=== PATIENT | female | born 1990 | race African-American/Black ===

== ENCOUNTER 2020-05-10 17:58 | Emergency (ER) | payer OTHER ==
[2020-05-10 18:24] VITALS: BMI 29.1
[2020-05-10] MEDS ORDERED: LACTATED RINGERS SOLUTION 1000 ML INFUS.BAG IV ONE (19:06)
[2020-05-10] MEDS ORDERED: ONDANSETRON 4 MG/2 ML VIAL IVPB ONE (19:06)
[2020-05-10] MEDS ORDERED: PYRIDOXINE HCL (B-6) 100 MG TABLET PO ONE (19:30)
[2020-05-10] MEDS ORDERED: ONDANSETRON 4 MG/2 ML VIAL ONE (19:42)
[2020-05-10] MEDS ORDERED: PYRIDOXINE HCL (B-6) 50 MG TABLET (FP) PO ONE (20:00)
[2020-05-10 20:38] LABS: BASO % 0.3 % (0-2.0); EOS % 0.2 % (0-4.5); HEMATOCRIT 37.3 % (32.4-45.2); HEMOGLOBIN 12.6 GM/dL (10.7-15.3); LYMPH % 18.9 % (8-40); MCH 29.3 pg (25.7-33.7); MCHC 33.9 g/dl (32.0-36.0); MEAN CELL VOLUME 86.5 fl (80-96); MEAN PLT VOLUME 9.5 fl (7.5-11.1); NEUT % 73.6 % (42.8-82.8); PLATELET COUNT 286 K/MM3 (134-434); RBC 4.31 M/mm3 (3.60-5.2); RDW 13.2 % (11.6-15.6)
[2020-05-10 20:57] LABS: POTASSIUM 3.5 mmol/L (3.5-5.1)
[2020-05-10 21:00] LABS: CALCIUM 9.8 mg/dL (8.5-10.1)
[2020-05-10 21:01] LABS: ALBUMIN 3.9 g/dl (3.4-5.0); BLOOD UREA NITROGEN 6.6 mg/dL (7-18)
[2020-05-10 21:04] LABS: CREATININE 0.5 mg/dL (0.55-1.3)
[2020-05-10 21:05] LABS: BILIRUBIN,TOTAL 0.4 mg/dL (0.2-1); TOT PROT 8.2 g/dl (6.4-8.2)
[2020-05-10 22:33] LABS: EPI CELLS >36 /uL (0-25.1); HYALINE CASTS 66 /uL (0-3.1); URINE APPEARANCE TURBID; URINE BACTERIA 3641 /uL (0-1359); URINE BILIRUBIN 1+ (NEGATIVE); URINE COLOR DK YELLOW; URINE GLUCOSE (UA) NEGATIVE (NEGATIVE); URINE KETONE 4+ (NEGATIVE); URINE LEUK ESTERASE 2+ (NEGATIVE); URINE NITRITE NEGATIVE (NEGATIVE); URINE PROTEIN 1+ (NEGATIVE); URINE RBC 41 /uL (0-23.9); URINE WBC 916 /uL (0-25.8)
[2020-05-10] MEDS ORDERED: CEPHALEXIN MONOHYDRATE 500 MG CAPSULE (UD) PO ONE (22:50)
[2020-05-10 23:02] VITALS: BP 117/83; PULSE 81; TEMP 98.4
[2020-05-10] MEDS ORDERED: CEPHALEXIN MONOHYDRATE 500 MG CAPSULE (UD) ONE (23:07)
== END 2020-05-10 23:16 | disposition home or self-care (01) ==
LOC: JER 17:58
PROC: 3E033GC Introduction of Other Therapeutic Substance into Peripheral Vein, Percutaneous Approach (ICD-10-PCS; principal; 2020-05-10)
DX: O21.1 Hyperemesis gravidarum with metabolic disturbance (principal); R82.71 Bacteriuria; Z3A.12 12 weeks gestation of pregnancy
CPT/HCPCS: 36415; 80053; 81003; 83690; 84702; 85025; 87086; 99284-25

== ENCOUNTER 2020-12-13 22:18 | Emergency (ER) | payer OTHER ==
[2020-12-13 22:24] VITALS: BP 119/84; PULSE 81; TEMP 98; BMI 30.7
[2020-12-13] MEDS ORDERED: ACETAMINOPHEN 325 MG TABLET (FP) PO ONE (23:48)
[2020-12-13] MEDS ORDERED: ACETAMINOPHEN 325 MG TABLET (FP) ONE (23:58)
== END 2020-12-14 01:10 | disposition home or self-care (01) ==
LOC: JER 22:18
DX: R51.9 Headache, unspecified (principal)
CPT/HCPCS: 99283-25

== ENCOUNTER 2021-01-16 16:51 | Inpatient (IN) | payer OTHER ==
[2021-01-16 17:19] VITALS: BMI 27.8
[2021-01-16] MEDS ORDERED: SODIUM CHLORIDE 1,000 ML IV STA ×2 (17:46→20:23)
[2021-01-16] MEDS ORDERED: ACETAMINOPHEN 1000 MG/100 ML VIAL (NON FORMULARY) IVPB ONE (17:46)
[2021-01-16] MEDS ORDERED: ONDANSETRON 4 MG/2 ML VIAL IVPUSH ONE (17:46)
[2021-01-16] MEDS ORDERED: morphine CARPU-JECT 4 MG/1 ML DISP.SYRIN IVPUSH ONE (18:11)
[2021-01-16] MEDS ORDERED: ACETAMINOPHEN INJECTION 100 ML IVPB ONE (18:13)
[2021-01-16] MEDS ORDERED: ONDANSETRON 4 MG/2 ML VIAL ONE (18:14)
[2021-01-16 19:20] LABS: BASO % 0.2 % (0-2.0); EOS % 0.4 % (0-4.5); HEMATOCRIT 37.2 % (32.4-45.2); HEMOGLOBIN 12.2 GM/dL (10.7-15.3); LYMPH % 11.6 % (8-40); MCH 27.6 pg (25.7-33.7); MCHC 32.7 g/dl (32.0-36.0); MEAN CELL VOLUME 84.3 fl (80-96); MEAN PLT VOLUME 9.9 fl (7.5-11.1); MONO % 5.6 % (3.8-10.2); NEUT % 82.2 % (42.8-82.8); PLATELET COUNT 251 10^3/uL (134-434); RBC 4.42 M/mm3 (3.60-5.2); RDW 13.9 % (11.6-15.6)
[2021-01-16 19:33] LABS: CALCIUM 8.5 mg/dL (8.5-10.1)
[2021-01-16 19:34] LABS: ALBUMIN 3.6 g/dl (3.4-5.0)
[2021-01-16 19:37] LABS: CREATININE 0.5 mg/dL (0.55-1.3)
[2021-01-16 19:39] LABS: BILIRUBIN,TOTAL 2.4 mg/dL (0.2-1); TOT PROT 7.6 g/dl (6.4-8.2)
[2021-01-16 19:52] LABS: EPI CELLS >36 /uL (0-25.1); HYALINE CASTS 7 /uL (0-3.1); PH,URINE 5.5 (5.0-8.0); URINE APPEARANCE CLOUDY; URINE BACTERIA 46 /uL (0-1359); URINE BILIRUBIN 2+ (NEGATIVE); URINE COLOR DK YELLOW; URINE GLUCOSE (UA) NEGATIVE (NEGATIVE); URINE KETONE NEGATIVE (NEGATIVE); URINE LEUK ESTERASE 2+ (NEGATIVE); URINE NITRITE NEGATIVE (NEGATIVE); URINE PROTEIN 2+ (NEGATIVE); URINE RBC 323 /uL (0-23.9); URINE WBC 486 /uL (0-25.8)
[2021-01-16] MEDS ORDERED: CEFTRIAXONE 1 GM/50 ML BAG ONE (21:11)
[2021-01-16] MEDS ORDERED: CEFTRIAXONE 1,000 MG in DEXTROSE 5%-WATER - 50 ML IVPB ONE (21:13)
[2021-01-16] MEDS ORDERED: HYDROmorphone HCL CARPU-JECT 2 MG/1 ML DISP.SYRIN IVPUSH ONE (21:53)
[2021-01-16] MEDS ORDERED: HYDROmorphone HCl 2 MG/ML VIAL ONE (22:06)
[2021-01-17] MEDS ORDERED: MORPHINE SULFATE 2 MG/ML VIAL IVPUSH PRN (02:43)
[2021-01-17] MEDS ORDERED: LACTATED RINGERS SOLUTION 1,000 ML IV SCH ×2 (02:45→17:00)
[2021-01-17] MEDS ORDERED: PIPERACILLIN/TAZOB 3.375 GM 3.375 GM in DEXTROSE 5%-WATER - 50 ML IVPB SCH (03:00)
[2021-01-17] MEDS ORDERED: PIPERACILLIN/TAZOB 3.375 GM 3.375 GM/50 ML BAG IVPB ONE (03:01)
[2021-01-17] MEDS ORDERED: MORPHINE SULFATE 2 MG/ML VIAL ONE (03:01)
[2021-01-17] MEDS ORDERED: PIPERACILLIN/TAZOB 3.375 GM 3.375 GM/50 ML BAG IVPB SCH (03:15)
[2021-01-17] MEDS ORDERED: DEXTROSE 5%-WATER - 50 ML IVPB ONE ×3 (05:35→18:41)
[2021-01-17] MEDS ORDERED: PIPERACILLIN/TAZOBACTAM 3.375 GM VIAL IVPB ONE ×2 (05:35→12:07)
[2021-01-17] MEDS: PIPERACILLIN/TAZOB 3.375 GM 3.375 GM in DEXTROSE 5%-WATER - 3.375 GM/50 ML IVPB IVPB SCH ×2 (05:38→12:16)
[2021-01-17] MEDS ORDERED: morphine SULFATE 4 MG/ML VIAL IVPUSH PRN (09:41)
[2021-01-17] MEDS ORDERED: ENOXAPARIN NA (PORCINE) 40 MG/0.4 ML DISP.SYRIN SQ SCH (10:00)
[2021-01-17] MEDS ORDERED: HYDROmorphone HCl 2 MG/ML VIAL IVPB ONE ×2 (10:11→12:15)
[2021-01-17] MEDS ORDERED: HYDROmorphone HCl 2 MG/ML VIAL IVPB PRN (10:14)
[2021-01-17 11:28] LABS: BASO % 0.3 % (0-2.0); EOS % 0.7 % (0-4.5); HEMATOCRIT 35.8 % (32.4-45.2); HEMOGLOBIN 11.8 GM/dL (10.7-15.3); LYMPH % 17.8 % (8-40); MEAN CELL VOLUME 84.9 fl (80-96); NEUT % 73.2 % (42.8-82.8); PLATELET COUNT 243 10^3/uL (134-434); RBC 4.21 M/mm3 (3.60-5.2); RDW 13.5 % (11.6-15.6); WHITE BLOOD COUNT 6.8 K/mm3 (4.0-10.0)
[2021-01-17 11:49] LABS: CALCIUM 8.1 mg/dL (8.5-10.1)
[2021-01-17 11:51] LABS: CREATININE 0.4 mg/dL (0.55-1.3); MAGNESIUM 2.1 mg/dL (1.8-2.4)
[2021-01-17 11:52] LABS: BLOOD UREA NITROGEN 7.6 mg/dL (7-18)
[2021-01-17 11:53] LABS: PHOSPHOROUS 3.2 mg/dL (2.5-4.9); TOT PROT 6.9 g/dl (6.4-8.2)
[2021-01-17 11:54] LABS: BILIRUBIN,TOTAL 0.8 mg/dL (0.2-1)
[2021-01-17 12:01] LABS: ALBUMIN 3.2 g/dl (3.4-5.0)
[2021-01-17] MEDS ORDERED: INDOMETHACIN 50 MG RECTAL SUPPOSITORY PR ONE (12:45)
[2021-01-17] MEDS: KCL 10 MEQ IVPB 10 MEQ/100 ML INFUS.BAG IVPB SCH ×3 (13:15→18:14)
[2021-01-17] MEDS ORDERED: TAMSULOSIN HCL 0.4 MG CAP PO ONE ×2 (16:01→18:00)
[2021-01-17] MEDS ORDERED: LACTATED RINGERS SOLUTION 1,000 ML/1,000 ML INFUS.BAG IV SCH (16:30)
[2021-01-17] MEDS ORDERED: ONDANSETRON 4 MG/2 ML VIAL IVPUSH PRN (16:52)
[2021-01-17] MEDS ORDERED: cefTRIAXone SODIUM 1 GM VIAL ONE (18:41)
[2021-01-17] MEDS: CEFTRIAXONE 1 GM in DEXTROSE 5%-WATER - 50 ML IVPB SCH (18:45)
[2021-01-18] MEDS ORDERED: LACTATED RINGERS SOLUTION 1,000 ML/1,000 ML INFUS.BAG IV SCH ×2 (01:00→11:12)
[2021-01-18 09:30] LABS: BASO % 0.2 % (0-2.0); EOS % 0.3 % (0-4.5); HEMATOCRIT 30.2 % (32.4-45.2); HEMOGLOBIN 10.3 GM/dL (10.7-15.3); LYMPH % 18.8 % (8-40); MCH 28.4 pg (25.7-33.7); MCHC 34.1 g/dl (32.0-36.0); MEAN CELL VOLUME 83.5 fl (80-96); MONO % 6.5 % (3.8-10.2); NEUT % 74.2 % (42.8-82.8); PLATELET COUNT 234 10^3/uL (134-434); RBC 3.62 M/mm3 (3.60-5.2); RDW 13.6 % (11.6-15.6); WHITE BLOOD COUNT 8.1 K/mm3 (4.0-10.0)
[2021-01-18 10:19] LABS: CREATININE 0.3 mg/dL (0.55-1.3)
[2021-01-18 10:20] LABS: ALBUMIN 2.8 g/dl (3.4-5.0)
[2021-01-18 10:27] LABS: BILIRUBIN,TOTAL 0.5 mg/dL (0.2-1); BLOOD UREA NITROGEN 7.2 mg/dL (7-18); TOT PROT 6.2 g/dl (6.4-8.2)
[2021-01-18] MEDS ORDERED: cefTRIAXone SODIUM 1 GM VIAL ONE (10:27)
[2021-01-18] MEDS ORDERED: DEXTROSE 5%-WATER - 50 ML IVPB ONE (10:27)
[2021-01-18 10:28] LABS: BILIRUBIN,DIRECT 0.2 mg/dL (0.0-0.2)
[2021-01-18] MEDS: CEFTRIAXONE 1 GM in DEXTROSE 5%-WATER - 50 ML IVPB SCH (10:39)
[2021-01-18] MEDS ORDERED: POTASSIUM CHLORIDE TABS 20 MEQ TABLET.ER (FP) PO ONE (15:09)
[2021-01-18] MEDS ORDERED: oxyCODONE HCL 5 MG TABLET PO PRN (17:51)
[2021-01-19] MEDS ORDERED: DEXTROSE 5%-LACTATED RINGERS 1,000 ML IV SCH (08:00)
[2021-01-19] MEDS ORDERED: DEXAMETHASONE SOD PHOSPHATE 4 MG/1 ML VIAL ONE ×2 (09:11→10:45)
[2021-01-19] MEDS ORDERED: ROCURONIUM BROMIDE 50 MG/5 ML SYRINGE ONE (09:11)
[2021-01-19] MEDS ORDERED: LIDOCAINE HCL 2% JELLY (5 ML/TUBE) ONE ×2 (09:11→10:45)
[2021-01-19] MEDS ORDERED: LIDOCAINE HCL/PF 2% SDV 5ML VIAL ONE ×2 (09:11→10:45)
[2021-01-19] MEDS ORDERED: ONDANSETRON 4 MG/2 ML VIAL ONE ×2 (09:11→10:45)
[2021-01-19] MEDS ORDERED: fentaNYL CITRATE 250 MCG/5 ML VIAL ONE (09:11)
[2021-01-19] MEDS ORDERED: GLYCOPYRROLATE 0.2 MG/1 ML VIAL ONE ×3 (09:11→10:45)
[2021-01-19] MEDS ORDERED: ceFAZolin SODIUM 1 GM VIAL ONE (09:11)
[2021-01-19] MEDS ORDERED: MIDAZOLAM HCL 2 MG/2 ML SINGLE DOSE VIAL ONE (09:12)
[2021-01-19] MEDS ORDERED: PROPOFOL 20 ML ONE ×3 (09:12)
[2021-01-19] MEDS ORDERED: BUPIVACAINE HCL/PF 0.5% (5MG/ML) 10 ML VIAL ONE (09:52)
[2021-01-19 09:56] LABS: CALCIUM 8.3 mg/dL (8.5-10.1)
[2021-01-19 09:57] LABS: BLOOD UREA NITROGEN 5.5 mg/dL (7-18)
[2021-01-19 10:01] LABS: BILIRUBIN,TOTAL 0.5 mg/dL (0.2-1); TOT PROT 6.9 g/dl (6.4-8.2)
[2021-01-19 10:02] LABS: CREATININE 0.5 mg/dL (0.55-1.3)
[2021-01-19] MEDS ORDERED: BUPIVACAINE HCL/PF 0.5% (5 MG/ML) 30 ML VIAL IJ ONE ×2 (10:28)
[2021-01-19] MEDS ORDERED: NEOSTIGMINE METHYLSULFATE 0.5 MG/1 ML - 10 ML MDV ONE (10:44)
[2021-01-19] MEDS ORDERED: KETOROLAC TROMETHAMINE 30 MG/1 ML VIAL ONE (10:45)
[2021-01-19] MEDS ORDERED: ONDANSETRON 4 MG/2 ML VIAL IVPUSH PRN ×2 (10:59→12:42)
[2021-01-19] MEDS ORDERED: LACTATED RINGERS SOLUTION 1,000 ML IV SCH (11:00)
[2021-01-19] MEDS ORDERED: oxyCODONE HCL 5 MG TABLET PO PRN (12:42)
[2021-01-20 05:43] VITALS: BP 122/71; PULSE 84; TEMP 98.5
[2021-01-20 09:13] LABS: BASO % 0.3 % (0-2.0); EOS % 0.8 % (0-4.5); HEMATOCRIT 29.8 % (32.4-45.2); MCH 28.6 pg (25.7-33.7); MCHC 33.7 g/dl (32.0-36.0); MEAN PLT VOLUME 9.4 fl (7.5-11.1); MONO % 8.5 % (3.8-10.2); NEUT % 62.4 % (42.8-82.8); PLATELET COUNT 247 10^3/uL (134-434); RBC 3.51 M/mm3 (3.60-5.2); RDW 13.4 % (11.6-15.6); WHITE BLOOD COUNT 9.3 K/mm3 (4.0-10.0)
[2021-01-20 09:34] LABS: ALBUMIN 2.8 g/dl (3.4-5.0); BLOOD UREA NITROGEN 10.8 mg/dL (7-18); CALCIUM 8.4 mg/dL (8.5-10.1)
[2021-01-20 09:37] LABS: CREATININE 0.6 mg/dL (0.55-1.3)
[2021-01-20 09:39] LABS: BILIRUBIN,TOTAL 0.3 mg/dL (0.2-1); TOT PROT 6.4 g/dl (6.4-8.2)
[2021-01-20] MEDS ORDERED: POTASSIUM CHLORIDE TABS 20 MEQ TABLET.ER (FP) PO ONE (12:35)
== END 2021-01-20 14:53 | disposition home or self-care (01) | DRG 263 ==
LOC: JER 16:51 → JERBED 22:49 → J6S 01-17 04:42
PROVIDERS: ADMIT Internal Medicine; ATTEND Internal Medicine
PROC: 0FC98ZZ Extirpation of Matter from Common Bile Duct, Via Natural or Artificial Opening Endoscopic (ICD-10-PCS; 2021-01-17)
PROC: BF10YZZ Fluoroscopy of Bile Ducts using Other Contrast (ICD-10-PCS; 2021-01-17)
PROC: 0FT44ZZ Resection of Gallbladder, Percutaneous Endoscopic Approach (ICD-10-PCS; principal; 2021-01-19 11:30)
DX: K85.10 Biliary acute pancreatitis without necrosis or infection (principal); K80.00 Calculus of gallbladder with acute cholecystitis without obstruction; N13.30 Unspecified hydronephrosis; N20.1 Calculus of ureter; R74.01 Elevation of levels of liver transaminase levels; R80.9 Proteinuria, unspecified; N39.0 Urinary tract infection, site not specified
CPT/HCPCS: 36415; 74177-TC; 76000-TC-FY; 76705-TC; 76775-TC; 80053; 80061; 81003; 82150; 82248; 82570; 83690; 83735; 84100; 84156; 84703; 85025; 86140; 86705; 86706; 86708; 87040; 87086; 87517; 87522; 93005; 93010; 93306-TC; 94760; 99285-25; C9803; J0131; Q9967; U0003; U0005

== ENCOUNTER 2021-06-23 15:19 | Emergency (ER) | payer OTHER ==
[2021-06-23 15:31] VITALS: BP 132/83; PULSE 91; TEMP 97.8; BMI 26.4
== END 2021-06-23 18:53 | disposition home or self-care (01) ==
LOC: JERFT 15:19
DX: Z48.02 Encounter for removal of sutures (principal)
CPT/HCPCS: 99281-25